=== PATIENT | male | born 1945 | race Caucasian/White ===

== ENCOUNTER 2017-01-01 07:56 | Inpatient (IN) | payer OTHER ==
--- NOTE | ~2017-01-01 | OP ---
Record Of Operation [facility] [address] [place]. [address] NAME: ADOLFO MCDANIEL JR : 49 STATUS : ADM IN PAT#: [id number] AGE: 71 ADM/REG DATE : 01/01/17 MR#: [id number] REPORT SERV DATE: 01/02/17 DICTATED BY: Gabo LUA DATE: 01/02/17 REPORT STATUS : Draft TRANSCRIBED BY: MODL DATE: 01/02/17 DATE OF PROCEDURE: 01/02/2017 PREOPERATIVE DIAGNOSIS: Left ureteral stones with intractable pain. POSTOPERATIVE DIAGNOSIS: Left ureteral stones with intractable pain, proximal urethral narrowing. PROCEDURE: Cystoscopy, urethral dilation, left retrograde pyelography, ureteroscopy with basket stone extraction, double-J stent placement. SURGEON: Gabo Lua M.D. ANESTHESIA: General endotracheal. COMPLICATIONS: None. DRAINS: A 7-[place] x 22 cm Contour double-J stent. Two 20-[place] two-way Randle catheter. BRIEF HISTORY: Mr. Mcdaniel is a 71-year-old white male, admitted yesterday with a history of recurrent stone disease and one day of severe left flank pain. He had a difficult to control hypertension and hyperglycemia with a glucose over 400. CT showed a 6 mm stone on the left as well as a 3 mm distal stone and a possible 2 mm bladder stone. The plan was to control his symptoms overnight and proceed with stent placement and/or ureteroscopy. Today, there was no sign of infection or sepsis. We discussed risks of bleeding, infection, anesthesia, injury to adjacent organs, inability to access proximal stone, need for stent and further treatment. There were no unanswered questions. He has been under the care of Dr. Gage in the past. DESCRIPTION OF PROCEDURE: Under excellent general anesthesia, the patient was prepped and draped in standard lithotomy position. Cystoscopy was performed with a 30-degree lens showing a normal anterior urethra. In the proximal bulb just below the membranous urethra, there was some narrowing that required dilation to about 24-[place]. 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 The bladder was inspected. There were no tumors, stones, or foreign bodies noted. The left orifice was cannulated and a retrograde showed a filling defect with obstruction at the UVJ and proximal ureterectasis. I inserted an angled glidewire through a 5-[place] open-ended catheter and then alongside the wire, inserted a short rigid ureteroscope. I encountered 3-4 mm stone in the distal ureter along with another smaller stone and these were removed with a nitinol basket. The proximal stone retracted into the kidney possibly with a retrograde, but I could not remove it and in this setting, I felt that the kidney was best drained with a stent with further management of this stone later on. I then retrofitted the wire in the cystoscope, placed a 7-[place] x 22 cm Contour double-J stent which coiled nicely in the renal pelvis and bladder. Because of his urethral dilation, I placed a 20-[place] 2-way Randle catheter and I planned to send him back to the floor for further management of his blood pressure and glucose. His catheter will come out in the morning and my plans will be to have him follow up with Dr. Gage to Record Of Operation [address] [place]. [address] NAME: ADOLFO MCDANIEL : 49 STATUS : ADM IN PAT#: [id number] AGE: 71 ADM/REG DATE : 01/01/17 MR#: [id number] REPORT SERV DATE: 01/02/17 DICTATED BY: Gabo LUA DATE: 01/02/17 REPORT STATUS : Draft TRANSCRIBED BY: ANISHA DATE: 01/02/17 consider further management of his now active proximal stone. HARLAN/ANISHA Gabo Lua M.D. / [id number] CC: Jenny Lockett M.D. Ross A. Cohn, M.D.
--- NOTE | ~2017-01-01 | DS ---
Discharge Summary [facility] [address] [place] [address] NAME: ADOLFO MCDANIEL JR : 49 STATUS : ADM IN PAT#: [id number] AGE: 71 ADM/REG DATE : 01/01/17 MR#: [id number] REPORT SERV DATE: 01/03/17 DICTATED BY: ALEXANDRO DELUCA DATE: 01/03/17 REPORT STATUS : Draft TRANSCRIBED BY: MODL DATE: 01/03/17 ADMISSION DATE: 01/01/2017 DISCHARGE DATE: ADDENDUM: I discussed renal function and A1c with Mr. Mcdaniel. Current plan is to hold his Prinivil and Glucophage, follow up with his PCP, address his elevated A1c and renal function with sliding scale insulin until either his Glucophage is restarted or additional diabetic changes are made. BRIJESHF/ANISHA Alexandro Deluca M.D. / [id number] CC: Jenny Barillas M.D.
--- NOTE | ~2017-01-01 | HP ---
History And Physical [facility] [id number] [place]. [address] NAME: ADOLFO MCDANIEL JR : 49 STATUS : ADM IN [facility]#: [id number] AGE: 71 ADM/REG DATE : 01/01/17 MR#: [id number] REPORT SERV DATE: 01/01/17 DICTATED BY: SHERLY CRAWFORD DATE: 01/01/17 REPORT STATUS : Draft TRANSCRIBED BY: ANISHA DATE: 01/01/17 DATE OF ADMISSION: 01/01/2017 CHIEF COMPLAINT: Left-sided flank pain. HISTORY OF PRESENT ILLNESS: This is a 71-year-old male with a past medical history of recurrent renal calculus status post cystoscopy with ureteroscopy by his urologist, Dr. Gage, in the past, presented with a one-day history of left flank pain. He denies any subjective fever or chills. Positive nausea. No vomiting. No dry heaves. No chest pain. No shortness of breath. He denies any dysuria. He describes his pain as severe 7/10 currently after receiving two doses of Dilaudid in the ER. He denies any constipation or diarrhea. No neuro focal deficits. REVIEW OF SYSTEMS: Please refer to HPI. PAST MEDICAL HISTORY: Hypertension, type 2 diabetes, hypothyroidism, arthritis, GERD, renal calculus. PAST SURGICAL HISTORY: Appendectomy, hernia repair, total knee replacement, cystoscopy with ureteroscopy. FAMILY HISTORY: Type 2 diabetes. SOCIAL HISTORY: No tobacco, alcohol, or illicit drugs. is currently at bedside. ALLERGIES: TO PENICILLIN AND LATEX. THE PATIENT WAS SEEN BY ER PHYSICIAN, DR. TORRE, WHO ORDERED A RENAL PROTOCOL CT WITH FINDINGS OF A LEFT HYDRONEPHROSIS WITH RENAL CALCULI IN THE LEFT PROXIMAL, LEFT DISTAL URETER AND URINARY BLADDER, AND SOME BILATERAL RENAL CALCULI. DR. LUA, UROLOGIST, WAS CALLED AND CONSULTED BY ER PHYSICIAN, AND IS AWARE OF THE PATIENT AND STATUS. THE PATIENT ALSO WAS FOUND TO BE SEVERELY HYPERTENSIVE WITH SYSTOLIC BLOOD PRESSURES RANGING 190S TO 200S AND WITH UNCONTROLLED DIABETES WITH A BLOOD SUGAR OF 432 AND THE HOSPITALIST WAS CALLED TO ADMIT THE PATIENT TO THE HOSPITAL. HOME MEDICATIONS: Please refer to the pharmacy medication reconciliation review. PHYSICAL EXAMINATION: VITAL SIGNS: Temp is 97.6, initial blood pressure 194/106, now has come down to 181/92, with a pulse of 71, respiration of 24, sating 96% on room air. GENERAL: The patient is alert and oriented x3. Uncomfortable secondary to pain. HEENT: Pupils equal, round, and reactive to light. Extraocular muscles are intact with dry mucous membranes. Anicteric sclerae. CARDIOVASCULAR: S1, S2. No rubs. No gallops. No JVD. RESPIRATORY: Clear to auscultation bilaterally. No wheezes or crackles. No signs of History And Physical [address] [address] NAME: ADOLFO MCDANIEL JR : 49 STATUS : ADM IN [facility]#: [id number] AGE: 71 ADM/REG DATE : 01/01/17 MR#: [id number] REPORT SERV DATE: 01/01/17 DICTATED BY: SHERLY CRAWFORD DATE: 01/01/17 REPORT STATUS : Draft TRANSCRIBED BY: ANISHA DATE: 01/01/17 tachypnea. ABDOMEN: Positive bowel sounds. Soft with tenderness to palpation left side, no rebound. EXTREMITIES: 2+ pulse bilaterally. NEURO: Cranial nerves II through XII grossly intact. Moves all four extremities. LABORATORY DATA: Sodium 136, potassium 5.1 with a chloride of 102, bicarb of 23, BUN of 26, creatinine 1.38 with a glucose 432. White count 12.6 with a hemoglobin of 14.8, platelet count 236. UA: Specific gravity of 1.021, negative protein, trace of ketone, negative blood, negative nitrites, negative leukocyte esterase, 4 white blood cells. ASSESSMENT AND PLAN: 1. Left hydronephrosis with renal calculi. 2. Hypertensive urgency secondary to pain. 3. Acute kidney injury. 4. Type 2 diabetes uncontrolled. 5. Leukocytosis. We will appropriately hydrate but hold the patient's KEATON inhibitor and metformin at this time. Then placed on IV medications for blood pressure control. Also, consider nitroglycerin paste as needed, also pain management, and also await Urology evaluation. We will keep the patient n.p.o. for possible OR today, and also we will continue to manage diabetes. We will continue with long-acting insulin and sliding scale insulin for now. [facility]/MODL Sherly Crawford M.D. / [id number] CC: Jenny Spann M.D.
--- NOTE | ~2017-01-01 | CN ---
Consultation Report [facility] [place]. [address] NAME: ADOLFO MCDANIEL JR : 49 STATUS : ADM IN PAT#: [id number] AGE: 71 ADM/REG DATE : 01/01/17 MR#: [id number] REPORT SERV DATE: 01/01/17 DICTATED BY: Gabo LUA DATE: 01/01/17 REPORT STATUS : Draft TRANSCRIBED BY: MODShady DATE: 01/01/17 CONSULTATION NOTE DATE OF CONSULTATION: 01/01/2017 CHIEF COMPLAINT: Left ureteral stone with intractable pain. HISTORY OF PRESENT ILLNESS: Mr. Mcdaniel is a 71-year-old white male with a history of stone disease treated by Dr. Sam Gage, who has undergone multiple procedures in the past. He is admitted through the ER with a one-day history of left flank pain. CT stone search showed a 6-mm stone at L4-5 on the left, 3 mm left distal stone, and a bladder stone about 2 mm in size. He has had hypertension and an elevated blood sugar, but denied fever, chills, nausea, and vomiting. PAST MEDICAL HISTORY: 1. Hypertension. 2. Type 2 diabetes. 3. Hypothyroidism. 4. Arthritis. 5. GERD. 6. Urolithiasis. PAST SURGICAL HISTORY: 1. Appendectomy. 2. Hernia repair. 3. Total knee replacement. 4. Endoscopic stone management. SOCIAL HISTORY: The patient denies use of tobacco or drugs. FAMILY HISTORY: Negative for urologic disease. ALLERGIES: PENICILLIN AND LASIX. HOME MEDICATIONS: Please refer to the home medicine reconciliation sheet. They are currently not noted in his chart. REVIEW OF SYSTEMS: Negative except as noted above. PHYSICAL EXAMINATION: GENERAL: Uncomfortable appearing 71-year-old white male, but he is conversant and pleasant. VITAL SIGNS: Afebrile with normal vital signs except for a blood pressure currently 185/100. Consultation Report [facility] [place]. [address] NAME: ADOLFO MCDANIEL JR : 49 STATUS : ADM IN PAT#: [id number] AGE: 71 ADM/REG DATE : 01/01/17 MR#: [id number] REPORT SERV DATE: 01/01/17 DICTATED BY: Gabo LUA DATE: 01/01/17 REPORT STATUS : Draft TRANSCRIBED BY: ANISHA DATE: 01/01/17 HEENT: Normocephalic, atraumatic. CHEST: No respiratory distress. HEART: Regular rate, regular rhythm. ABDOMEN: Nontender, nondistended. No suprapubic distention. No CVA tenderness noted. : Normal external genitalia. EXTREMITIES: No significant peripheral edema. PERTINENT LABORATORY: Creatinine 1.38, glucose 432. White count 12,600. Urinalysis positive for 10 to 20 red cells. IMPRESSION: 1. Obstructing left ureteral stone with intractable pain. 2. Hypertension. 3. Hyperglycemia. PLAN: I think it would be his best interest to control his pain. Blood pressure and glucose and planned intervention in the a.m. He could certainly passes small distal stone, but he is unlikely to pass a 6-mm stone. I discussed this at length with the patient and his . We may or may not be able access more proximal stone, but at least we will get a stent in and then we can manage it more electively once he is feeling better. I do not see any reason to intervene emergently late Monday afternoon. HARLAN/ANISHA Gabo Lua M.D. / [id number] CC: Jenny Lockett M.D. Ross A. Cohn, M.D.
--- NOTE | ~2017-01-01 | DS ---
Discharge Summary [facility] [address] [place]. [address] NAME: ADOLFO MCDANIEL JR : 49 STATUS : ADM IN PAT#: [id number] AGE: 71 ADM/REG DATE : 01/01/17 MR#: [id number] REPORT SERV DATE: 01/03/17 DICTATED BY: ALEXANDRO DELUCA DATE: 01/03/17 REPORT STATUS : Draft TRANSCRIBED BY: MODL DATE: 01/03/17 ADMISSION DATE: 01/01/2017 DISCHARGE DATE: 01/03/2017 FINAL HOSPITAL DIAGNOSES: 1. Nephrolithiasis. 2. Diabetes. 3. Hypertension. 4. Hypothyroidism. CONSULTATIONS: Urology,Dr. Gabo Vázquez. PROCEDURES: 1. Cystoscopy with urethral dilatation. Retrograde pyelography. Ureteroscopy with stone extraction and stent placement. 2. CT kidney stone protocol done on the 01/01/2017 showing calculi of the left proximal and distal left ureter, and in the bladder with left hydronephrosis, proximal ureteral dilatation, and perinephric, periureteral edema, bilateral nonobstructing calculi, right renal cyst, calcific atherosclerosis. CURRENT PHYSICAL FINDINGS AND HPI: Please see dictated H and P by Dr. Sanchez. In brief, the patient is a 71-year-old male. He has had kidney stones in the past, presented with left flank pain and hyperglycemia. HOSPITAL COURSE: The patient was admitted. Initial vital signs showed a blood pressure of 194/106 with relief of his pain discomfort. His blood pressures have normalized. No fever during this hospital stay. Initial pulse rates got into the low 100s, but again with pain control had been much improved. LABORATORY DATA: Initial creatinine was 1.38, subsequent on the 01/02/2017 was 1.72 and 1.35 on today's date. It appears his baseline creatinine is normal. A1c was noted to be elevated at 10.0. Initial white count was 18, subsequent was 14 today postprocedure. Urine showed coag-negative staph, which was felt to be contaminant. HOSPITAL COURSE: The patient was admitted. Reasonable pain control was initiated. Urology continued to follow. Serial labs were followed. Sliding scale was initiated and home medications were addressed. He was placed on a CHIP MIXER for pain control. Urology preferred his blood pressure and sugar get better control before any intervention, which he proceeded to on the 01/02/2017. Stone extraction and stent placement, which he tolerated well. Today, his Randle has been removed. He has been pain free, tolerating p.o. and voiding without difficulty. He is felt stable for discharge. DISPOSITION: He is discharged home. He will call Dr. Gage's office in the morning for followup instructions. MEDICATIONS: Will be Coreg 25 b.i.d., Lantus 25 at bedtime, levothyroxine 100, Ritalin 20 Discharge Summary [address] [address] NAME: ADOLFO MCDANIEL JR : 49 STATUS : ADM IN PAT#: [id number] AGE: 71 ADM/REG DATE : 01/01/17 MR#: [id number] REPORT SERV DATE: 01/03/17 DICTATED BY: ALEXANDRO DELUCA DATE: 01/03/17 REPORT STATUS : Draft TRANSCRIBED BY: MODL DATE: 01/03/17 q.i.d., Prilosec 20, Zocor 20, testosterone, and Pyridium. We will ask the patient to hold his Prinivil and Glucophage until he follows up with his PCP to ensure his renal function has returned to normal. I will discuss sliding scale insulin with him given his elevated A1c and his acute numbers when he came in, and withholding some of his medications until his renal function improves. [facility]/MODL Alexandro Deluca M.D. / [id number] CC: Jenny Barillas M.D.
[2017-01-01 07:01] LABS: BASOPHILS 0.4 %; BASOPHILS ABSOLUTE 0.05 10/3/uL (0.0-0.16); EOSINOPHILS 2.4 %; ER CBC TAT 0 Hrs 05 Mins; HEMATOCRIT 42.4 % (40.0-51.0); HEMOGLOBIN 14.8 g/dL (13.6-17.8); IMMATURE GRANULOCYTES 0.6 %; IMMATURE GRANULOCYTES ABSOLUTE 0.08 10/3/uL (0.0-0.11); LYMPHOCYTES 8.2 %; LYMPHOCYTES ABSOLUTE 1.04 10/3/uL (0.67-4.30); MEAN CORPUS HGB CONC 34.9 g/dL (32.0-36.0); MEAN CORPUSCULAR HEMOGLOB 31.4 pg (26.0-34.0); MEAN CORPUSCULAR VOLUME 89.8 fL (80-100); MEAN PLATELET VOLUME 10.9 fL (9.2-13.0); MONOCYTES 5.7 %; MONOCYTES ABSOLUTE 0.72 10/3/uL (0.21-1.20); NEUTROPHILS 82.7 %; NEUTROPHILS ABSOLUTE 10.42 10/3/uL (2.02-8.40); PLATELET COUNT 236 10/3/uL (150-400); RBC DISTRIBUTION WIDTH 14.6 % (12.0-16.0); RED CELL COUNT 4.72 10/6/uL (4.7-6.1); WHITE BLOOD CELLS 12.6 10/3/uL (4.5-10.5)
[2017-01-01 07:02] LABS: MANUAL DIFF NO %
[2017-01-01 07:16] LABS: BUN (BLOOD UREA NITROGEN) 26 MG/DL (6-23); CHLORIDE, SERUM 102 MMOL/L (96-112); CO2 (CARBON DIOXIDE) 23 MMOL/L (24-34); CREATININE 1.38 MG/DL (0.70-1.30); GFR AFRICAN AMERICAN 60 ML/MIN (>=60); GFR NON AFRICAN AMERICAN 52 ML/MIN (>=60); GLUCOSE, SERUM 432 MG/DL (60-99); POTASSIUM, SERUM 5.1 MMOL/L (3.5-5.3); SODIUM, SERUM 136 MMOL/L (135-148)
[2017-01-01 07:17] LABS: CALCIUM, SERUM 9.2 MG/DL (8.5-10.4)
[~2017-01-01 07:56] MED LIST: CIP5 PO; COREG25 PO; CYMBALTA30 PO; CYMBALTA60 PO; DIL2TAB PO; ENDOCET1 TAB PO; FLOMAX4 PO; GLUCOPHAGE1000 MG PO; HCTZ25B PO; HYDROCHLOROT25 MG PO; LANTUS SC; LEVOTHYROXIN25 MCG PO; LEVOTHYROXIN50 MCG PO; LISINOPRIL40 MG PO; PERCOCET1 TA4 PO; PHENADOZ25 MG RE; PR25 PO; PRILO PO; PYR200 PO; RITALIN20 PO; SYNTHROID200 MCG PO; TORATAB PO; ZOCOR20 PO
[2017-01-01 08:09] LABS: ASCORBIC ACID (UR NOT ORDER) 20 (NEG); BILIRUBIN, URINE NEGATIVE (NEG); ER URINALYSIS TAT 0 Hrs 15 Mins; KETONE, URINE TRACE MG/DL (NEG); LEUKOCYTE ESTERASE(NOT OR NEG (NEG); NITRITE (URINE) NEG (NEG); WBC (NOT ORDERED) (RFLEX) 4 (0-5)
[2017-01-01] MEDS ORDERED: LISINOPRIL40 MG PO (09:50)
[2017-01-01] MEDS ORDERED: GLUCOPHAGE1000 MG PO (09:51)
[2017-01-01] MEDS ORDERED: LANTUSCART SC (09:51)
[2017-01-01] MEDS ORDERED: COREG25 PO (09:51)
[2017-01-01] MEDS ORDERED: ZOCOR20 PO (09:52)
[2017-01-01] MEDS ORDERED: TESTOST CYP100 MG/ML IM (09:52)
[2017-01-01] MEDS ORDERED: *UNABLE1 (09:53)
[2017-01-01] MEDS ORDERED: RITALIN20 PO (09:53)
[2017-01-01] MEDS ORDERED: LEVOTHYROXIN100 MCG PO (09:53)
[2017-01-01 12:42] LABS: % IRON SAT 25 % (20-50); IRON BINDING CAPACITY 347 MCG/DL (250-450); IRON, SERUM 86 MCG/DL (35-150)
[2017-01-02 07:12] LABS: BASOPHILS 0.1 %; BASOPHILS ABSOLUTE 0.02 10/3/uL (0.0-0.16); EOSINOPHILS 0 %; HEMATOCRIT 42.1 % (40.0-51.0); HEMOGLOBIN 14.5 g/dL (13.6-17.8); IMMATURE GRANULOCYTES 0.4 %; IMMATURE GRANULOCYTES ABSOLUTE 0.07 10/3/uL (0.0-0.11); LYMPHOCYTES 2.9 %; LYMPHOCYTES ABSOLUTE 0.53 10/3/uL (0.67-4.30); MEAN CORPUS HGB CONC 34.4 g/dL (32.0-36.0); MONOCYTES 10.9 %; MONOCYTES ABSOLUTE 1.96 10/3/uL (0.21-1.20); NEUTROPHILS 85.7 %; NEUTROPHILS ABSOLUTE 15.42 10/3/uL (2.02-8.40); PLATELET COUNT 189 10/3/uL (150-400); RBC DISTRIBUTION WIDTH 14.6 % (12.0-16.0); RED CELL COUNT 4.68 10/6/uL (4.7-6.1)
[2017-01-02 07:13] LABS: MANUAL DIFF NO %
[2017-01-02 07:35] LABS: BUN (BLOOD UREA NITROGEN) 23 MG/DL (6-23); CALCIUM, SERUM 8.6 MG/DL (8.5-10.4); CHLORIDE, SERUM 104 MMOL/L (96-112); CO2 (CARBON DIOXIDE) 24 MMOL/L (24-34); CREATININE 1.72 MG/DL (0.70-1.30); GFR AFRICAN AMERICAN 46 ML/MIN (>=60); GFR NON AFRICAN AMERICAN 40 ML/MIN (>=60); POTASSIUM, SERUM 5.1 MMOL/L (3.5-5.3); SGOT(AST) 13 U/L (5-40); SGPT(ALT) 24 U/L (5-65); SODIUM, SERUM 138 MMOL/L (135-148); TOTAL BILIRUBIN 0.7 MG/DL (0-1.2)
[2017-01-02 07:36] LABS: A/G RATIO 0.9 (0.7-1.9); ALBUMIN 3.3 G/DL (3.5-5.0); GLOBULIN 3.7 G/DL (2.5-4.1); GLUCOSE, SERUM 276 MG/DL (60-99)
[2017-01-02 07:37] LABS: ALKALINE PHOSPHATASE 76 U/L (45-117)
[2017-01-02] MEDS ORDERED: PRILO PO (10:35)
[2017-01-03 06:24] LABS: BASOPHILS 0.2 %; BASOPHILS ABSOLUTE 0.03 10/3/uL (0.0-0.16); EOSINOPHILS 0.3 %; EOSINOPHILS ABSOLUTE 0.04 10/3/uL (0.0-0.53); HEMATOCRIT 38.4 % (40.0-51.0); IMMATURE GRANULOCYTES 0.6 %; IMMATURE GRANULOCYTES ABSOLUTE 0.08 10/3/uL (0.0-0.11); LYMPHOCYTES 6.1 %; LYMPHOCYTES ABSOLUTE 0.86 10/3/uL (0.67-4.30); MEAN CORPUS HGB CONC 33.9 g/dL (32.0-36.0); MEAN CORPUSCULAR HEMOGLOB 31.3 pg (26.0-34.0); MEAN CORPUSCULAR VOLUME 92.3 fL (80-100); MEAN PLATELET VOLUME 11.2 fL (9.2-13.0); MONOCYTES ABSOLUTE 1.56 10/3/uL (0.21-1.20); NEUTROPHILS 81.8 %; NEUTROPHILS ABSOLUTE 11.58 10/3/uL (2.02-8.40); PLATELET COUNT 172 10/3/uL (150-400); RBC DISTRIBUTION WIDTH 14.8 % (12.0-16.0); RED CELL COUNT 4.16 10/6/uL (4.7-6.1); WHITE BLOOD CELLS 14.2 10/3/uL (4.5-10.5)
[2017-01-03 06:27] LABS: MANUAL DIFF NO %
[2017-01-03 06:40] LABS: BUN (BLOOD UREA NITROGEN) 22 MG/DL (6-23); CALCIUM, SERUM 8.2 MG/DL (8.5-10.4); CHLORIDE, SERUM 103 MMOL/L (96-112); CO2 (CARBON DIOXIDE) 24 MMOL/L (24-34); CREATININE 1.35 MG/DL (0.70-1.30); GFR AFRICAN AMERICAN 62 ML/MIN (>=60); GFR NON AFRICAN AMERICAN 53 ML/MIN (>=60); GLUCOSE, SERUM 222 MG/DL (60-99); POTASSIUM, SERUM 4.6 MMOL/L (3.5-5.3); SODIUM, SERUM 138 MMOL/L (135-148)
[2017-01-05 12:37] LABS: STONE COMPOSITION TWO DNR (())
[2017-01-06] MEDS ORDERED: NOVOPEN SC (15:06)
== END 2017-01-03 17:46 | disposition home or self-care (01) | DRG 669 ==
LOC: ER 07:56 → 4SO 11:52
PROVIDERS: Internal Medicine; Specialist
PROC: BT1F1ZZ Fluoroscopy of Left Kidney, Ureter and Bladder using Low Osmolar Contrast (ICD-10-PCS; principal; 2017-01-01)
PROC: 0T778DZ Dilation of Left Ureter with Intraluminal Device, Via Natural or Artificial Opening Endoscopic (ICD-10-PCS; principal; 2017-01-01)
PROC: 0T7D8DZ Dilation of Urethra with Intraluminal Device, Via Natural or Artificial Opening Endoscopic (ICD-10-PCS; principal; 2017-01-01)
PROC: 0TC78ZZ Extirpation of Matter from Left Ureter, Via Natural or Artificial Opening Endoscopic (ICD-10-PCS; principal; 2017-01-01)
DX: N13.2 Hydronephrosis with renal and ureteral calculous obstruction (principal); N13.8 Other obstructive and reflux uropathy; N17.9 Acute kidney failure, unspecified; E11.65 Type 2 diabetes mellitus with hyperglycemia; N35.9 Urethral stricture, unspecified; N40.1 Benign prostatic hyperplasia with lower urinary tract symptoms; E03.9 Hypothyroidism, unspecified; M19.90 Unspecified osteoarthritis, unspecified site; K21.9 Gastro-esophageal reflux disease without esophagitis; Z87.442 Personal history of urinary calculi; Z96.659 Presence of unspecified artificial knee joint; Z88.0 Allergy status to penicillin; Z91.040 Latex allergy status; I16.0 Hypertensive urgency
CPT/HCPCS: 36415; 74000; 74176; 74420; 80048; 80053; 81001; 82365; 82962; 83036; 83540; 83550; 83735; 85025; 86850; 86900; 86901; 87086; 96374; 96375; 99285; A9270-GY; C1758; C1769; C2617; J0360; J1170; J1200; J2370; J2405; J2710; J3010; Q9967